=== PATIENT | male | born 1960 | race African-American/Black ===

== ENCOUNTER 2023-07-02 11:41 | Inpatient (IN) | payer BC ==
[2023-07-02 12:09] VITALS: BMI 20.7
[2023-07-02] MEDS ORDERED: ONDANSETRON *ODT* 4 MG TABLET SL PRN (14:07)
[2023-07-02] MEDS ORDERED: METHOCARBAMOL 500 MG TABLET PO PRN (14:07)
[2023-07-02] MEDS ORDERED: MAG HYDROX/AL HYDROX/SIMETH 30 ML UNIT-DOSE CUP PO PRN (14:07)
[2023-07-02] MEDS ORDERED: NALOXONE HCL 0.4 MG/ML VIAL IM PRN (14:07)
[2023-07-02] MEDS ORDERED: BENZONATATE 200 MG CAPSULE PO PRN (14:07)
[2023-07-02] MEDS ORDERED: LOPERAMIDE HCL 2 MG CAPSULE PO PRN (14:07)
[2023-07-02] MEDS ORDERED: POLYETHYLENE GLYCOL (HEALTHYLAX) 3350 17 GM PACKET PO PRN (14:07)
[2023-07-02] MEDS ORDERED: IBUPROFEN 600 MG TABLET (FP) PO PRN (14:07)
[2023-07-02] MEDS ORDERED: BENZOCAINE/MENTHOL (CHLORASEPTIC ) LOZENGE MM PRN (14:07)
[2023-07-02] MEDS ORDERED: MAGNESIUM HYDROX 2400MG/30ML ORAL SUSPENSION 30 ML CUP PO PRN (14:07)
[2023-07-02] MEDS ORDERED: NALOXONE HCL (KLOXXADO) 8 MG SPRAY NS PRN (14:07)
[2023-07-02] MEDS ORDERED: NICOTINE POLACRILEX 2 MG GUM BUC PRN (14:07)
[2023-07-02] MEDS ORDERED: ACETAMINOPHEN 325 MG TABLET (FP) PO PRN (14:07)
[2023-07-02] MEDS ORDERED: hydrOXYzine PAMOATE 25 MG CAPSULE (FP) PO PRN (14:07)
[2023-07-02] MEDS ORDERED: IBUPROFEN 400 MG TABLET (FP) PO PRN (14:07)
[2023-07-02] MEDS ORDERED: guaiFENesin 600 MG TABLET.ER (FP) PO PRN (14:07)
[2023-07-02] MEDS: THIAMINE HCL 100 MG TABLET (FP) PO SCH (21:03)
[2023-07-02] MEDS ORDERED: MELATONIN 5 MG TABLETS PO SCH (22:00)
[2023-07-03] MEDS ORDERED: FLU VACCINE (FLULAVAL) PF 60 MCG/0.5 ML SYRINGE 2023-2024 IM ONE (09:30)
[2023-07-03] MEDS ORDERED: PNEUMOC 20-VAL CONJ-DIP CRM/PF 0.5 ML SYRINGE IM ONE (09:30)
[2023-07-03] MEDS: NICOTINE 14 MG/24 HOURS TOPICAL PATCH TD SCH (09:59)
[2023-07-03] MEDS: PRENATAL VITAMINS W/ FOLIC ACID TABLET (FP) PO SCH (09:59)
[2023-07-03] MEDS ORDERED: ALBUTEROL SO4 HFA INHALER IH PRN (11:18)
[2023-07-03 11:19] LABS: POTASSIUM 4.4 mmol/L (3.5-5.1)
[2023-07-03 11:24] LABS: CALCIUM 9.2 mg/dL (8.5-10.1); HEMATOCRIT 44.3 % (35.4-49); MCH 28.5 pg (25.7-33.7); MEAN CELL VOLUME 83.9 fl (80-96); MEAN PLT VOLUME 8.2 fl (7.5-11.1); PLATELET COUNT 286 10^3/uL (134-434); RBC 5.28 M/mm3 (4.00-5.60); WHITE BLOOD COUNT 7.6 K/mm3 (4.0-10.0)
[2023-07-03 11:25] LABS: ALBUMIN 3.7 g/dl (3.4-5.0); BLOOD UREA NITROGEN 14.4 mg/dL (7-18)
[2023-07-03 11:28] LABS: TOT PROT 7.3 g/dl (6.4-8.2)
[2023-07-03 11:29] LABS: BILIRUBIN,TOTAL 0.4 mg/dL (0.2-1)
[2023-07-03] MEDS: MELATONIN 5 MG TABLETS PO SCH (21:13)
[2023-07-03] MEDS: THIAMINE HCL 100 MG TABLET (FP) PO SCH (21:13)
[2023-07-04] MEDS: NICOTINE 14 MG/24 HOURS TOPICAL PATCH TD SCH (10:10)
[2023-07-04] MEDS: PRENATAL VITAMINS W/ FOLIC ACID TABLET (FP) PO SCH (10:10)
[2023-07-04] MEDS: THIAMINE HCL 100 MG TABLET (FP) PO SCH (21:15)
[2023-07-04] MEDS: MELATONIN 5 MG TABLETS PO SCH (21:15)
[2023-07-05] MEDS: PRENATAL VITAMINS W/ FOLIC ACID TABLET (FP) PO SCH (10:03)
[2023-07-05] MEDS: NICOTINE 14 MG/24 HOURS TOPICAL PATCH TD SCH (10:04)
[2023-07-05] MEDS: THIAMINE HCL 100 MG TABLET (FP) PO SCH (21:07)
[2023-07-05] MEDS: MELATONIN 5 MG TABLETS PO SCH (21:07)
[2023-07-06] MEDS: PRENATAL VITAMINS W/ FOLIC ACID TABLET (FP) PO SCH (09:57)
[2023-07-06] MEDS: NICOTINE 14 MG/24 HOURS TOPICAL PATCH TD SCH (09:57)
[2023-07-06] MEDS: THIAMINE HCL 100 MG TABLET (FP) PO SCH (21:43)
[2023-07-06] MEDS: MELATONIN 5 MG TABLETS PO SCH (21:43)
[2023-07-07] MEDS: PRENATAL VITAMINS W/ FOLIC ACID TABLET (FP) PO SCH (10:21)
[2023-07-07] MEDS: NICOTINE 14 MG/24 HOURS TOPICAL PATCH TD SCH (10:22)
[2023-07-07] MEDS: THIAMINE HCL 100 MG TABLET (FP) PO SCH (21:14)
[2023-07-07] MEDS: MELATONIN 5 MG TABLETS PO SCH (21:14)
[2023-07-08] MEDS: NICOTINE 14 MG/24 HOURS TOPICAL PATCH TD SCH (10:01)
[2023-07-08] MEDS: PRENATAL VITAMINS W/ FOLIC ACID TABLET (FP) PO SCH (10:01)
[2023-07-08] MEDS: MELATONIN 5 MG TABLETS PO SCH (21:04)
[2023-07-08] MEDS: THIAMINE HCL 100 MG TABLET (FP) PO SCH (21:04)
[2023-07-09] MEDS: PRENATAL VITAMINS W/ FOLIC ACID TABLET (FP) PO SCH (10:19)
[2023-07-09] MEDS: NICOTINE 14 MG/24 HOURS TOPICAL PATCH TD SCH (10:20)
[2023-07-09] MEDS: TOLNAFTATE 1% CREAM 15 GM TUBE TP SCH ×2 (13:50→21:26)
[2023-07-09] MEDS: ALBUTEROL SO4 HFA INHALER IH PRN (14:49)
[2023-07-09] MEDS: MELATONIN 5 MG TABLETS PO SCH (21:26)
[2023-07-09] MEDS: THIAMINE HCL 100 MG TABLET (FP) PO SCH (21:26)
[2023-07-10] MEDS: NICOTINE 14 MG/24 HOURS TOPICAL PATCH TD SCH (09:57)
[2023-07-10] MEDS: TOLNAFTATE 1% CREAM 15 GM TUBE TP SCH ×2 (09:57→21:04)
[2023-07-10] MEDS: SODIUM CHLORIDE NASAL SPRAY 44 ML BOTTLE NS PRN (09:58)
[2023-07-10] MEDS: PRENATAL VITAMINS W/ FOLIC ACID TABLET (FP) PO SCH (09:58)
[2023-07-10] MEDS: THIAMINE HCL 100 MG TABLET (FP) PO SCH (21:03)
[2023-07-10] MEDS: SUVOREXANT 10 MG TABLET PO PRN (21:04)
[2023-07-11] MEDS: SODIUM CHLORIDE NASAL SPRAY 44 ML BOTTLE NS PRN (08:29)
[2023-07-11] MEDS: PRENATAL VITAMINS W/ FOLIC ACID TABLET (FP) PO SCH (09:46)
[2023-07-11] MEDS: NICOTINE 14 MG/24 HOURS TOPICAL PATCH TD SCH (09:46)
[2023-07-11] MEDS: TOLNAFTATE 1% CREAM 15 GM TUBE TP SCH ×2 (09:46→21:19)
[2023-07-11] MEDS ORDERED: METHOCARBAMOL 500 MG TABLET PO PRN (11:50)
[2023-07-11] MEDS: ALBUTEROL SO4 HFA INHALER IH PRN (13:59)
[2023-07-11] MEDS: THIAMINE HCL 100 MG TABLET (FP) PO SCH (21:19)
[2023-07-11] MEDS: SUVOREXANT 10 MG TABLET PO PRN (21:20)
[2023-07-12] MEDS: PRENATAL VITAMINS W/ FOLIC ACID TABLET (FP) PO SCH (09:57)
[2023-07-12] MEDS: SODIUM CHLORIDE NASAL SPRAY 44 ML BOTTLE NS PRN (09:58)
[2023-07-12] MEDS: NICOTINE 14 MG/24 HOURS TOPICAL PATCH TD SCH (09:58)
[2023-07-12] MEDS: TOLNAFTATE 1% CREAM 15 GM TUBE TP SCH ×2 (09:58→21:13)
[2023-07-12] MEDS ORDERED: ARTIFICIAL TEARS OPHTHALMIC DROPS OU PRN (11:10)
[2023-07-12] MEDS: ALBUTEROL SO4 HFA INHALER IH PRN ×2 (13:59→18:29)
[2023-07-12] MEDS: BISMUTH SUBSALICYLATE 262 MG/15 ML BTL PO PRN ×2 (14:20→21:12)
[2023-07-12] MEDS: THIAMINE HCL 100 MG TABLET (FP) PO SCH (21:12)
[2023-07-12] MEDS: SUVOREXANT 10 MG TABLET PO PRN (21:12)
[2023-07-13] MEDS: PRENATAL VITAMINS W/ FOLIC ACID TABLET (FP) PO SCH (10:30)
[2023-07-13] MEDS: TOLNAFTATE 1% CREAM 15 GM TUBE TP SCH ×2 (10:30→21:41)
[2023-07-13] MEDS: NICOTINE 14 MG/24 HOURS TOPICAL PATCH TD SCH (10:31)
[2023-07-13] MEDS ORDERED: COLLOIDAL OATMEAL 1 BAR EACH TP PRN (13:30)
[2023-07-13] MEDS: BACITRACIN 0.9 GM PACKET TP SCH (15:52)
[2023-07-13] MEDS: ALBUTEROL SO4 HFA INHALER IH PRN (20:16)
[2023-07-13] MEDS: THIAMINE HCL 100 MG TABLET (FP) PO SCH (21:41)
[2023-07-13] MEDS: SUVOREXANT 10 MG TABLET PO PRN (21:42)
[2023-07-13] MEDS ORDERED: SUVOREXANT 10 MG TABLET PO PRN (22:00)
[2023-07-14 07:19] VITALS: RESP 18
[2023-07-14] MEDS: ALBUTEROL SO4 HFA INHALER IH PRN (07:53)
[2023-07-14] MEDS: PRENATAL VITAMINS W/ FOLIC ACID TABLET (FP) PO SCH (09:40)
[2023-07-14] MEDS: BACITRACIN 0.9 GM PACKET TP SCH (09:41)
[2023-07-14] MEDS: NICOTINE 14 MG/24 HOURS TOPICAL PATCH TD SCH (09:41)
[2023-07-14] MEDS: TOLNAFTATE 1% CREAM 15 GM TUBE TP SCH ×2 (10:23→22:25)
[2023-07-14] MEDS: THIAMINE HCL 100 MG TABLET (FP) PO SCH (21:07)
[2023-07-15] MEDS: PRENATAL VITAMINS W/ FOLIC ACID TABLET (FP) PO SCH (10:33)
[2023-07-15] MEDS: ALBUTEROL SO4 HFA INHALER IH PRN ×2 (10:35→19:25)
[2023-07-15] MEDS: BACITRACIN 0.9 GM PACKET TP SCH (10:36)
[2023-07-15] MEDS: NICOTINE 14 MG/24 HOURS TOPICAL PATCH TD SCH (10:36)
[2023-07-15] MEDS: TOLNAFTATE 1% CREAM 15 GM TUBE TP SCH ×2 (10:36→21:09)
[2023-07-15] MEDS ORDERED: MELATONIN 5 MG TABLETS PO PRN (13:58)
[2023-07-15] MEDS: THIAMINE HCL 100 MG TABLET (FP) PO SCH (21:07)
[2023-07-16 06:48] VITALS: BP 128/69; PULSE 94; TEMP 96.9
[2023-07-16] MEDS: ALBUTEROL SO4 HFA INHALER IH PRN (09:10)
[2023-07-16] MEDS: PRENATAL VITAMINS W/ FOLIC ACID TABLET (FP) PO SCH (09:11)
[2023-07-16] MEDS: TOLNAFTATE 1% CREAM 15 GM TUBE TP SCH (09:12)
[2023-07-16] MEDS: NICOTINE 14 MG/24 HOURS TOPICAL PATCH TD SCH (09:12)
[2023-07-16] MEDS: BACITRACIN 0.9 GM PACKET TP SCH (09:12)
== END 2023-07-16 09:15 | disposition home or self-care (01) | DRG 772 ==
LOC: YASAS 11:41 → Y3W 18:37
PROVIDERS: ADMIT Allergy & Immunology; ATTEND Psychiatry & Neurology Pain Medicine
PROC: HZ42ZZZ Group Counseling for Substance Abuse Treatment, Cognitive-Behavioral (ICD-10-PCS; principal; 2023-07-02)
DX: F11.20 Opioid dependence, uncomplicated (principal); F14.20 Cocaine dependence, uncomplicated; F10.20 Alcohol dependence, uncomplicated; F17.210 Nicotine dependence, cigarettes, uncomplicated; F19.282 Other psychoactive substance dependence with psychoactive substance-induced sleep disorder; F19.280 Other psychoactive substance dependence with psychoactive substance-induced anxiety disorder; F19.24 Other psychoactive substance dependence with psychoactive substance-induced mood disorder; F41.9 Anxiety disorder, unspecified; F41.0 Panic disorder [episodic paroxysmal anxiety]; F32.A Depression, unspecified; E78.5 Hyperlipidemia, unspecified; I10 Essential (primary) hypertension; J45.909 Unspecified asthma, uncomplicated; L85.3 Xerosis cutis; M62.838 Other muscle spasm; R26.89 Other abnormalities of gait and mobility
CPT/HCPCS: 36415; 80053; 80307; 85027; 86780; 87635; 90677; 90686; 93005; 93010; G0008